=== PATIENT | male | born 1935 | race Caucasian/White ===

== ENCOUNTER 2017-04-27 15:04 | Inpatient (IN) | payer MEDICARE, BC ==
[~2017-04-27] VITALS: Ht 170.2 cm; Wt 80.9 kg
--- NOTE | ~2017-04-27 | PN ---
PATIENT:EDUARDO HUTCHINSON MEDICAL RECORD: [id number] LOCATION:[facility] [address] ADMISSION DATE: 04/27/17 PROGRESS NOTE DATE OF SERVICE: 04/29/2017 SUBJECTIVE: The patient's case was discussed with staff. He has no new complaint. OBJECTIVE: The patient is in good behavioral control with poor insight about his condition. He tolerates his medicines well. ASSESSMENT: No change in diagnoses. PLAN: Current medicines have been reviewed and will be maintained. [facility] prognosis is guarded. TRANSINT:[id number] Voice Confirmation ID: [id number] DOCUMENT ID: [id number] RORY BAXTER MD at 1344 CC: [id number] DICTATION DATE: 04/29/17 1238 SLURRY BLENDER: 04/29/17 1249 ADM IN [place] [id number] [place] [address]
--- NOTE | ~2017-04-27 | PN ---
PATIENT:DEUARDO HUTCHINSON MEDICAL RECORD: [id number] LOCATION:[facility] ADMISSION DATE: 04/27/17 PROGRESS NOTE DATE OF SERVICE: 05/10/2017 SUBJECTIVE: No new complaint verbalized. OBJECTIVE: The patient has shown marked worsening of his behavior and therefore discharge was canceled. He was very combative when the [facility] the [facility] attempted to pick him up. He has again given evidence of hallucinations. He has been uncooperative with medications. On exam, the patient's mood is euthymic. Affect is blank and distant. Speech is very terse. Content of thought shows no evidence of suicidality. The patient has been giving evidence of visual hallucinations. Sensorium shows no change. ASSESSMENT: No change in diagnosis. PLAN: 1. We will add perphenazine 2 mg b.i.d. 2. Check valproic acid blood level in the morning. 3. Continue supportive therapy. TRANSINT:[id number] Voice Confirmation ID: [id number] DOCUMENT ID: [id number] RHIANNON COREAS III, MD at 1903 CC: [id number] DICTATION DATE: 05/10/17 09 COMMERCIAL ELECTRICIAN: 05/10/17 1116 ADM IN [facility] [address] [id number]
--- NOTE | ~2017-04-27 | PN ---
PATIENT:EDUARDO HUTCHINSON MEDICAL RECORD: [id number] LOCATION:[facility] ADMISSION DATE: 04/27/17 PROGRESS NOTE DATE OF SERVICE: 05/08/2017 SUBJECTIVE: The patient's case was discussed with staff. He has no new complaint. OBJECTIVE: The patient is in good behavioral control with limited insight about his condition. He has had some episodic outbursts that are problematic. He is currently taking Depakote and has not had a recent blood level. I anticipate it is going to be low, but will check a blood level for tomorrow morning. TRANSINT:[id number] Voice Confirmation ID: [id number] DOCUMENT ID: [id number] RORY BAXTER MD at 1355 CC: [id number] DICTATION DATE: 05/08/17 0840 LINUX CONSULTANT: 05/08/17 1205 ADM IN [facility] [address] [id number]
--- NOTE | ~2017-04-27 | DS ---
PATIENT:EDUARDO HUTCHINSON :33 MEDICAL RECORD: [id number] DISCHARGE SUMMARY ADMISSION DATE: 04/27/17 DISCHARGE DATE: DATE OF ADMISSION: 04/27/2017 DATE OF DISCHARGE: 05/05/2017 HISTORY OF PRESENT ILLNESS: This was the first [facility] admission for this 81-year-old white male who was accepted on transfer from [facility] because of combativeness. He carries a past history of Parkinson disease and Parkinson's related dementia. The patient had been showing worsening behavioral control as well as some delusional ideation and for that reason, he was admitted. For further details, please see previously dictated history. COURSE IN THE HOSPITAL: The patient was seen in consultation by Dr. Burnett who noted in addition to the Parkinson's disease, benign prostatic hyperplasia, GERD, and anemia. The patient was admitted to the hospital for further workup. He was maintained on a previous dose of lisinopril 20 mg daily as well as Sinemet to use 25/250 three times a day and 25/100 in the evening, he was also maintained on Klonopin 0.5 mg twice a day. He was given trazodone 50 mg h.s. for insomnia. He was given Depakote Sprinkles 250 mg b.i.d. for control of agitation. He was maintained on Flomax 0.4 mg daily, Keppra 500 mg b.i.d. for seizures, Florinef 0.1 mg daily, and Protonix 40 mg daily. The patient achieved a very good behavioral control. Consultation was maintained with family. They agreed to have the patient followed by [facility] and return to [facility]. 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 AXIS II: No diagnosis. AXIS III: Parkinson disease, gastroesophageal reflux disease, anemia, benign prostatic hyperplasia. AXIS IV: Moderate. AXIS V: 38. PLAN: 1. The patient was discharged on current medications. 2. Diet and activities. 3. Follow up through primary care physician at the [facility]. TRANSINT:[id number] Voice Confirmation ID: [id number] DOCUMENT ID: [id number] DISCHARGE SUMMARY REPORT [id number] EDUARDO HUTCHINSON JOSS BARR, RHIANNON Palm MD at 1035 CC: [id number] DICTATION DATE: 05/05/17 1129 PREDATORY HUNTER: 05/06/17 0439 ADM IN [facility] [address] [id number]
--- NOTE | ~2017-04-27 | PSY ---
PATIENT NAME:EDUARDO HUTCHINSON MEDICAL RECORD: [id number] : 33 LOCATION:[facility] ADMISSION DATE: 04/27/17 ACCOUNT: [id number] PSYCHIATRIC EVALUATION DATE OF EVALUATION: 04/28/17 Initial Psychiatric Workup IDENTIFYING DATA: An 81-year-old white male who was accepted on transfer from [facility] due to combativeness. HISTORY OF PRESENT ILLNESS: This patient has a past history of Parkinson's disease and Parkinson related dementia. He has been a resident at the senior care for a fairly brief period of time. He had recently been started on a new atypical antipsychotic, Nuplazid, and the patient's believes that this agitation has actually worsened since this time. The new medication was started apparently to control psychotic symptoms that the patient had been experiencing. Because of his combativeness, he was admitted. He did require p.r.n. Haldol and Ativan after admission because of continued combativeness. PAST MEDICAL HISTORY: Significant for Parkinson disease which has been present for years. The patient also has a history of seizure disorder. He has undergone a recent corneal transplant. Aside from this, the patient gives a history of gastroesophageal reflux disease and benign prostatic hyperplasia as well as chronic anemia. FAMILY HISTORY: Noncontributory. 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 He has 7 children. He has been for a number of years. There is no history of legal problems or substance abuse. ALLERGIES: LISTED TO ONLY LEVOFLOXACIN. MEDICATIONS: Prior to admission, these medications included Sinemet, Clonazepam 1 mg at bedtime, Florinef, galantamine, Keppra, multivitamins, MiraLax, Protonix, Pred Forte eye drops, and Flomax. MENTAL STATUS: On exam, the patient is pleasant. Mood is quiet reserved. He does respond well to the examiner. Affect is very constricted. Speech tends to be tangential. Content of thought is negative for overt psychosis. On sensorium testing, the patient is oriented only to person. He has global memory loss. DIAGNOSTIC IMPRESSION: AXIS I: Dementia associated with Parkinson disease. AXIS II: No diagnosis. AXIS III: Parkinson disease, benign prostatic hyperplasia, gastroesophageal reflux disease, anemia. AXIS IV: Severe. AXIS V: 34. PLAN: 1. The patient is admitted for further medical and psychiatric workup. 2. Diet and activities as tolerated. 3. Daily supportive therapy. TRANSINT:[id number] Voice Confirmation ID: [id number] DOCUMENT ID: [id number] RHIANNON COREAS III, MD at 1733 CC: [id number] DICTATION DATE: 04/28/17 1115 BB SHOT PACKER: 04/28/17 1334 ADM IN [place] [address] [place] [address]
--- NOTE | ~2017-04-27 | PN ---
PATIENT:EDUARDO HUTCHINSON MEDICAL RECORD: [id number] LOCATION:[facility] [address] ADMISSION DATE: 04/27/17 PROGRESS NOTE DATE OF SERVICE: 05/11/2017 SUBJECTIVE: No new complaint. OBJECTIVE: The patient has shown some improvement in the last 24 hours. He did take his medications yesterday. Family is working on discharge arrangements. On exam, mood is euthymic. Affect is bland. Speech is terse. Content of thought is unchanged. Sensorium unchanged. ASSESSMENT: No change in diagnosis. PLAN: 1. Maintain current medication. 2. Continue supportive therapy. TRANSINT:[id number] Voice Confirmation ID: [id number] DOCUMENT ID: [id number] RHIANNON COREAS III, MD at 2034 CC: [id number] DICTATION DATE: 05/11/17 1116 STATISTICAL ASSISTANT: 05/11/17 1208 ADM IN [facility] [address] [id number]
--- NOTE | ~2017-04-27 | PN ---
PATIENT:EDUARDO HUTCHINSON MEDICAL RECORD: [id number] LOCATION:[facility] [address] ADMISSION DATE: 04/27/17 PROGRESS NOTE DATE OF SERVICE: 04/30/2017 SUBJECTIVE: No new complaint. OBJECTIVE: The patient did fall this morning. He had a mild skin tear, otherwise stable. On exam, mood is euthymic. Affect is reserved. Speech continues to be rather tangential. Content of thought is negative for overt psychosis. Sensorium is unchanged. ASSESSMENT: No change in diagnosis. PLAN: 1. Reduce Klonopin to 0.5 mg b.i.d. 2. Continue other medications. 3. Continue supportive therapy. TRANSINT:[id number] Voice Confirmation ID: [id number] DOCUMENT ID: [id number] RHIANNON COREAS III, MD at 1733 CC: [id number] DICTATION DATE: 04/30/17 1436 SHIRT TURNER: 04/30/17 1523 ADM IN [id number] [place] [address]
--- NOTE | ~2017-04-27 | PN ---
PATIENT:EDUARDO HUTCHINSON MEDICAL RECORD: [id number] LOCATION:[facility] [address] ADMISSION DATE: 04/27/17 PROGRESS NOTE DATE OF SERVICE: 05/01/2017 SUBJECTIVE: No new complaint. OBJECTIVE: The patient has been stable the last 24 hours. No aggression noted. On exam, mood is euthymic. Affect very constricted. Speech is quite terse. Content of thought is negative for overt psychosis. Sensorium unchanged. ASSESSMENT: No change in diagnosis. PLAN: 1. Continue current medications. 2. Continue supportive therapy. TRANSINT:[id number] Voice Confirmation ID: [id number] DOCUMENT ID: [id number] RHIANNON COREAS III, MD at 1124 CC: [id number] DICTATION DATE: 05/01/17 1146 REGIONAL GUIDE: 05/01/17 1159 ADM IN [place] [id number] [place] [address]
--- NOTE | ~2017-04-27 | PN ---
PATIENT:EDUARDO HUTCHINSON MEDICAL RECORD: [id number] LOCATION:[facility] [address] ADMISSION DATE: 04/27/17 PROGRESS NOTE DATE OF SERVICE: 05/12/2017 SUBJECTIVE: No new complaint noted. OBJECTIVE: The patient has not presented new problems. His behavior has improved. He is no longer combative. On exam, mood is euthymic. Affect is very constricted. Speech is terse. Content of thought is negative for overt psychosis. Sensorium unchanged. ASSESSMENT: No change in diagnosis. PLAN: 1. Maintain current medication. 2. Continue supportive therapy. TRANSINT:[id number] Voice Confirmation ID: [id number] DOCUMENT ID: [id number] RHIANNON COREAS III, MD at 2034 CC: [id number] DICTATION DATE: 05/12/17 1016 MANAGER MOUNTAIN: 05/12/17 1101 ADM IN [facility] [address] [id number]
--- NOTE | ~2017-04-27 | PN ---
PATIENT:EDUARDO HUTCHINSON MEDICAL RECORD: [id number] LOCATION:[facility] [address] ADMISSION DATE: 04/27/17 PROGRESS NOTE DATE OF SERVICE: 05/06/2017 SUBJECTIVE: No new complaint. OBJECTIVE: The patient's discharge to the senior living was delayed due to some difficulties with transportation. He will be discharged today. On exam, presentation is unchanged. ASSESSMENT: No change in diagnosis. PLAN: 1. Maintain our currently ordered treatment plan. 2. The patient will be discharged later today. TRANSINT:[id number] Voice Confirmation ID: [id number] DOCUMENT ID: [id number] RHIANNON COREAS III, MD at 0816 CC: [id number] DICTATION DATE: 05/06/17 1124 EXHAUST MACHINE OPERATOR: 05/06/17 1159 ADM IN [place] [id number] [place] [address]
--- NOTE | ~2017-04-27 | DS ---
PATIENT:EDUARDO HUTCHINSON :33 MEDICAL RECORD: [id number] DISCHARGE SUMMARY ADMISSION DATE: 04/27/17 DISCHARGE DATE: 05/14/17 Addendum Discharge was delayed due to difficulty in finding placement. Placement has been secured as of today, the patient is discharged in stable condition, no change in medication or treatment plan. TRANSINT:[id number] Voice Confirmation ID: [id number] DOCUMENT ID: [id number] RHIANNON COREAS III, MD at 1142 CC: [id number] DICTATION DATE: 05/14/17 1202 MAINTENANCE AND ENGINEERING MANAGER: 05/14/17 1239 DIS IN 05/14/[id number] [place] [address]
--- NOTE | ~2017-04-27 | PN ---
PATIENT:EDUARDO HUTCHINSON MEDICAL RECORD: [id number] LOCATION:HEMA [facility] ADMISSION DATE: 04/27/17 PROGRESS NOTE DATE OF SERVICE: 05/04/2017 SUBJECTIVE: No new complaint. OBJECTIVE: The patient is occasionally uncooperative with medications, but overall has been doing well. Discharge is planned for tomorrow. He will be followed by [facility]. On exam, mood is euthymic. Affect is very bland. Speech is low in volume and slow in production and rate. Content of thought is negative for overt psychosis. Sensorium unchanged. ASSESSMENT: No change in diagnosis. PLAN: 1. Continue all current medications. 2. Anticipate discharge tomorrow. TRANSINT:[id number] Voice Confirmation ID: [id number] DOCUMENT ID: [id number] RHIANNON COREAS III, MD at 1056 CC: [id number] DICTATION DATE: 05/04/17 1017 HEAD PACKAGER: 05/04/17 1316 ADM IN [place] [address] [place] [address]
--- NOTE | ~2017-04-27 | PN ---
PATIENT:EDUARDO HUTCHINSON MEDICAL RECORD: [id number] LOCATION:[facility] [address] ADMISSION DATE: 04/27/17 PROGRESS NOTE DATE OF SERVICE: 05/13/2017 SUBJECTIVE: The patient states he does not like television. OBJECTIVE: The patient has done well. No new behavioral problems noted. He is tolerating medications. Plan for discharge tomorrow. On exam, mood is euthymic. Affect is bland. Speech is tangential. Content of thought unchanged. Sensorium unchanged. ASSESSMENT: No change in diagnoses. PLAN: 1. Maintain current treatment plan. 2. Anticipate discharge tomorrow. TRANSINT:[id number] Voice Confirmation ID: [id number] DOCUMENT ID: [id number] RHIANNON COREAS III, MD at 1917 CC: [id number] DICTATION DATE: 05/13/17 1226 AUTOMATIC BUFFING WHEEL FORMER: 05/13/17 1242 ADM IN [facility] [address] [place] [address]
--- NOTE | ~2017-04-27 | PN ---
PATIENT:EDUARDO HUTCHINSON MEDICAL RECORD: [id number] LOCATION:[facility] [address] ADMISSION DATE: 04/27/17 PROGRESS NOTE DATE OF SERVICE: 05/03/2017 SUBJECTIVE: No new complaint. OBJECTIVE: The patient has been cooperative. No further agitation noted. He is taking his medications as prescribed. He is ambulating some with physical therapy. On exam, mood is euthymic. Affect constricted. Speech very terse. Content of thought is negative for overt psychosis. Sensorium unchanged. ASSESSMENT: No change in diagnosis. PLAN: 1. Maintain current medications. 2. Continue supportive therapy. TRANSINT:[id number] Voice Confirmation ID: [id number] DOCUMENT ID: [id number] RHIANNON COREAS III, MD at 0919 CC: [id number] DICTATION DATE: 05/03/17 1144 AWNING INSTALLER: 05/03/17 1204 ADM IN [place] [id number] [place] [id number]
--- NOTE | ~2017-04-27 | PN ---
PATIENT:EDUARDO HUTCHINSON MEDICAL RECORD: [id number] LOCATION:[facility] [address] ADMISSION DATE: 04/27/17 PROGRESS NOTE DATE OF SERVICE: 05/07/2017 SUBJECTIVE: The patient's case was discussed with staff. He has no new complaint. OBJECTIVE: The patient denies intent to harm himself or others. He tolerates his medicines well. ASSESSMENT: No change in diagnoses. PLAN: Brief supportive and educational interventions were made. jail prognosis is guarded. TRANSINT:[id number] Voice Confirmation ID: [id number] DOCUMENT ID: [id number] RORY BAXTER MD at 1355 CC: [id number] DICTATION DATE: 05/07/17 1348 CHILD CAREGIVER: 05/07/17 2228 ADM IN [address] [address]
[2017-04-27] MEDS ORDERED: SINEMET 25-1001 EACH PO (17:03)
[2017-04-27] MEDS ORDERED: SINEMET 25-2501 EACH PO (17:05)
[2017-04-27] MEDS ORDERED: CICLOPIROX CREA15 GM TP (17:08)
[2017-04-27] MEDS ORDERED: KLONOPIN1 MG PO (17:10)
[2017-04-27] MEDS ORDERED: FLORINEF 0.1 M0.1 MG PO (17:12)
[2017-04-27] MEDS ORDERED: KEPPRA500 MG PO (17:16)
[2017-04-27] MEDS ORDERED: GALANTAMINE HBR4 MG PO (17:16)
[2017-04-27] MEDS ORDERED: MELATONIN 3 MG1 TAB PO (17:18)
[2017-04-27] MEDS ORDERED: MIRALAX17 GM PO (17:28)
[2017-04-27] MEDS ORDERED: CENTRUM SILVER1 TA1 PO (17:32)
[2017-04-27] MEDS ORDERED: OMEGA 3 FISH OI1 CAP PO (17:33)
[2017-04-27] MEDS ORDERED: NEXIUM40 MG PO (17:33)
[2017-04-27] MEDS ORDERED: MYRBETRIQ25 MG PO (17:43)
[2017-04-27] MEDS ORDERED: PRED FORTE5 ML LEFT EYE (17:47)
[2017-04-27] MEDS ORDERED: TRANSDERM-SCOP1.5 MG TD (17:59)
[2017-04-27] MEDS ORDERED: FLOMAX0.4 MG PO (18:01)
[2017-04-27] MEDS ORDERED: ACETAMINOPHEN325 MG PO (18:04)
[2017-04-27 19:21] LABS: APPEARANCE CLEAR (CLEAR); BILIRUBIN NEGATIVE (NEGATIVE); COLOR YELLOW (YELLOW); GLUCOSE NEGATIVE (NEGATIVE); KETONE NEGATIVE (NEGATIVE); NITRITE NEGATIVE (NEGATIVE); PROTEIN NEGATIVE (NEGATIVE); SPECIFIC GRAVITY 1.015 (1.005-1.020); UROBILINOGEN NORMAL (NORMAL)
[2017-04-27 19:22] LABS: BACTERIA FEW /hpf (NONE SEEN); RED CELLS - URINE OCC /hpf (0-5)
[2017-04-28 06:43] LABS: BASOPHILS 0.2 % (0-2); EOSINOPHILS 2.2 % (0-7); HEMATOCRIT 38.5 % (42.0-54.0); HEMOGLOBIN 12.8 g/dL (13.5-17.5); IMMATURE GRANULOCYTES 0.2 % (0-5); LYMPHOCYTES 26.4 % (15-50); MCH 30.2 pg (26.0-34.0); MCHC 33.2 g/dL (31.0-37.0); MCV 90.8 fL (80.0-100.0); MEAN PLATELET VOLUME 10.9 fL (7.4-10.4); MONOCYTES 9.5 % (2-11); NEUTROPHILS 61.5 % (40-80); PLATELET COUNT 143 10x3/uL (130-400); RBC 4.24 10x6/uL (4.20-6.10); RDW 12.8 % (11.5-14.5); WBC 5.6 10x3/uL (4.8-10.8)
[2017-04-28 07:24] LABS: ALBUMIN 3.2 g/dL (3.4-5.0); ALKALINE PHOSPHATASE 146 U/L (46-116); ALT (SGPT) 22 U/L (10-68); CALC OSMOLALITY 284 mosm/kg (275-300); CALCIUM 8.5 mg/dL (8.5-10.1); CARBON DIOXIDE 28.6 mmol/L (21.0-32.0); CHLORIDE - SERUM 105 mmol/L (98-107); CHOL - HDL RATIO 3.3 ratio (2.3-4.9); CHOLESTEROL, TOTAL 114 mg/dL (0-200); CREATININE - SERUM 0.9 mg/dL (0.6-1.3); GLUCOSE 88 mg/dL (74-106); HDL CHOLESTEROL 35 mg/dL (32-96); LDL CHOLESTEROL 60 mg/dL (0-100); LDL-HDL RATIO 1.7 ratio (1.5-3.5); POTASSIUM - SERUM 3.4 mmol/L (3.5-5.1); PROTEIN - SERUM 7.1 g/dL (6.4-8.2); SODIUM 143 mmol/L (136-145); THYROID STIMULATING HORMONE 1.85 uIU/mL (0.36-3.74); TRIGLYCERIDE 96 mg/dL (30-200); UREA NITROGEN 14 mg/dL (7-18); eGFR NON AFRICAN AMERICAN 86 mL/min (90-120)
[2017-04-28 15:11] VITALS: BMI 27.9
[2017-04-28 19:54] VITALS: BP 148/63
[2017-04-29 07:27] LABS: FOLATE (FOLIC ACID) - SERUM 16.4 ng/mL (>3.0); VITAMIN D 25 HYDROXY 42.5 ng/mL (30.0-100.0)
[2017-04-29 07:41] VITALS: BP 39/53
[2017-04-29 19:56] VITALS: BP 134/62
[2017-04-30 09:28] VITALS: BP 117/65
[2017-04-30 20:10] VITALS: BP 129/59
[2017-05-01 07:00] VITALS: BP 137/63
[2017-05-01 19:57] VITALS: BP 146/71
[2017-05-02 07:52] VITALS: BP 135/55
[2017-05-02 19:53] VITALS: BP 162/064
[2017-05-03 07:00] VITALS: BP 135/70
[2017-05-04 07:00] VITALS: BP 128/55
[2017-05-04 20:08] VITALS: BP 153/49
[2017-05-05 10:47] VITALS: BP 110/44
[2017-05-05] MEDS ORDERED: LISINOPRIL10 MG PO (11:22)
[2017-05-05] MEDS ORDERED: DEPAKOTE SPRIN125 MG PO (11:23)
[2017-05-05] MEDS ORDERED: KLONOPIN0.5 MG PO (11:23)
[2017-05-05] MEDS ORDERED: TRAZODONE HCL50 MG PO (11:24)
[2017-05-05] MEDS ORDERED: FLORAJEN3 CAPS460 MG PO (11:24)
[2017-05-05] MEDS ORDERED: THERAGRAN M [BK1 TAB PO (11:25)
[2017-05-05 20:06] VITALS: BP 148/48
[2017-05-06 09:31] VITALS: BP 136/53
[2017-05-06 19:44] VITALS: BP 130/68
[2017-05-07 09:32] VITALS: BP 131/63
[2017-05-07 20:22] VITALS: BP 140/58
[2017-05-08 09:57] VITALS: BP 148/78
[2017-05-08 20:01] VITALS: BP 105/56
[2017-05-09 07:00] VITALS: BP 146/67
[2017-05-09 09:29] VITALS: Ht 170.2 cm; Wt 80.9 kg
[2017-05-09 19:30] VITALS: BP 132/058
[2017-05-10 07:00] VITALS: BP 100/45
[2017-05-10 19:49] VITALS: BP 129/65
[2017-05-11 11:05] VITALS: BP 148/67
[2017-05-11 19:42] VITALS: BP 133/57
[2017-05-12 09:52] VITALS: BP 108/59
[2017-05-12 20:30] VITALS: BP 109/90
[2017-05-13 10:33] VITALS: BP 139/52
[2017-05-13 21:22] VITALS: BP 170/71
[2017-05-14 09:20] VITALS: BP 141/65
== END 2017-05-14 14:20 | DRG 57 ==
LOC: D.PSYCH 15:04
PROVIDERS: Psychiatry & Neurology Psychiatry
DX: G20 Parkinson's disease (principal); F02.81 Dementia in other diseases classified elsewhere, unspecified severity, with behavioral disturbance; N39.0 Urinary tract infection, site not specified; N40.0 Benign prostatic hyperplasia without lower urinary tract symptoms; K21.9 Gastro-esophageal reflux disease without esophagitis; D64.9 Anemia, unspecified; F41.9 Anxiety disorder, unspecified; Z74.09 Other reduced mobility; K59.09 Other constipation; B95.2 Enterococcus as the cause of diseases classified elsewhere; Z87.891 Personal history of nicotine dependence; S62.606A Fracture of unspecified phalanx of right little finger, initial encounter for closed fracture; S62.604A Fracture of unspecified phalanx of right ring finger, initial encounter for closed fracture; X58.XXXA Exposure to other specified factors, initial encounter